=== PATIENT | female | born 1965 | race Caucasian/White ===

== ENCOUNTER 2019-08-14 15:16 | Emergency (ER) | payer BC ==
[2019-08-14 16:46] VITALS: BP 128/77
--- NOTE | 2019-08-14 17:21 | UC ---
Lower Extremity/Ankle HPI - HPI Summary HPI Summary: Pt presents with c/o atraumatic right ankle pain that began ~ 3 days ago. Pt reports that she ran a marathon on July 29 and did not sustain any injury. Pt reports that she then began wearing boots that she hasn't worn in a while and began to develop right distal, anterior tibia. - History of Current Complaint Chief Complaint: UCLowerExtremity Stated Complaint: ANKLE PAIN Time Seen by Provider: 08/14/19 16:37 Hx Obtained From: Patient Hx Last Menstrual Period: none ?: No Onset/Duration: Sudden Onset, Lasting Days, Still Present Severity Initially: Mild Severity Currently: Moderate Pain Intensity: 7 Aggravating Factor(s): Standing, Ambulation Alleviating Factor(s): Rest, Elevation Able to Bear Weight: Yes - painful - Risk Factors Gout Risk Factors: Negative DVT Risk Factors: Negative Septic Arthritis Risk Factor: Negative - Allergies/Home Medications Allergies/Adverse Reactions: Allergies Allergy/AdvReac Type Severity Reaction Status Date / Time No Known Allergies Allergy Verified 08/14/19 16:46 Home Medications: Home Medications Fluticasone NASAL SPRAY 50MCG* [Flonase NASAL SPRAY 50MCG*] 2 spray BOTH NARES DAILY 08/14/19 [History Confirmed 08/14/19] PMH/Surg Hx/FS Hx/Imm Hx Previously Healthy: Yes - Surgical History Surgical History: Yes Surgery Procedure, Year, and Place: nose surgery - Family History Known Family History: Positive: Cardiac Disease - Social History Occupation: Employed Full-time Lives: With Family Alcohol Use: Occasionally Substance Use Type: None Smoking Status (MU): Never Smoked Tobacco Have You Smoked in the Last Year: No - Immunization History Most Recent Influenza Vaccination: [id number] Vaccination Up to Date: Yes Review of Systems All Other Systems Reviewed And Are Negative: Yes Constitutional: Positive: Negative Skin: Positive: Other - mild erythema to distal anterior rigth tibia Eyes: Positive: Negative ENT: Positive: Negative Respiratory: Positive: Negative Cardiovascular: Positive: Negative Gastrointestinal: Positive: Negative Genitourinary: Positive: Negative Motor: Positive: Negative Neurovascular: Positive: Negative Musculoskeletal: Positive: Arthralgia, Edema, Myalgia Neurological: Positive: Negative Psychological: Positive: Negative Is Patient Immunocompromised?: No Physical Exam Triage Information Reviewed: Yes Appearance: Well-Appearing Vital Signs: Initial Vital Signs Temp 99 F 08/14/19 16:40 Pulse 56 08/14/19 16:40 Resp 14 08/14/19 16:40 BP 128/77 08/14/19 16:40 Pulse Ox 99 08/14/19 16:40 Vital Signs Reviewed: Yes Eye Exam: Normal ENT Exam: Normal Dental Exam: Normal Neck exam: Normal Respiratory: Positive: No respiratory distress Musculoskeletal: Positive: Edema @ - mild edema to distal right anteior tibia Neurological Exam: Normal Psychological Exam: Normal Skin Exam: Other - mild erythema distal anterior erythema Diagnostics - Radiology No standard instances Radiology Interpretation Completed By: ED Physician - negative for fracture Lower Extremity Course/Dx - Course Course Of Treatment: I discussed with the pt the need to f/o with ortho or sports medicine. Pt states she already has an appointment with Dr. Munoz. I also discussed the s/ sx of cellulitis and the need to monitor for possibility of the development of this skin infection. Pt verbalized understanding and agreed to plan of care. - Differential Dx/Diagnosis Differential Diagnosis/HQI/PQRI: Cellulitis, Fracture (Closed), Tendonitis, Tenosynovitis Provider Diagnosis: Tendonitis of ankle, right Discharge ED - Sign-Out/Discharge Documenting (check all that apply): Patient Departure All imaging exams completed and their final reports reviewed: No - Discharge Plan Condition: Stable Disposition: HOME Patient Education Materials: Tenosynovitis (ED), Ice Pack Application (ED), Safe Use of NSAIDs (ED) Referrals: Marylou Munoz MD [Medical Doctor] - As Soon As Possible Xenia Guevara MD [Primary Care Provider] - If Needed - Billing Disposition and Condition Condition: STABLE Disposition: Home
--- NOTE | 2019-08-15 10:10 | UC ---
- Progress Note Progress Note: Ankle XR wet read correct Course/Dx - Diagnoses Provider Diagnoses: Tendonitis of ankle, right Discharge ED - Sign-Out/Discharge Documenting (check all that apply): Post-Discharge Follow Up All imaging exams completed and their final reports reviewed: Yes - Discharge Plan Condition: Stable Disposition: HOME Patient Education Materials: Tenosynovitis (ED), Ice Pack Application (ED), Safe Use of NSAIDs (ED) Referrals: Marylou Munoz MD [Medical Doctor] - As Soon As Possible Xenia Guevara MD [Primary Care Provider] - If Needed - Billing Disposition and Condition Condition: STABLE Disposition: Home
== END 2019-08-14 18:21 | disposition home or self-care (01) ==
LOC: UCCORT 15:16
DX: M77.51 Other enthesopathy of right foot and ankle (principal)
CPT/HCPCS: 99212; G0463